=== PATIENT | female | born 1960 | race Caucasian/White ===

== ENCOUNTER 2016-06-19 23:03 | Emergency (ER) | payer OTHER ==
[2016-06-19 23:23] VITALS: RESP 18; TEMP 98.3; O2SAT 99
[2016-06-19] MEDS ORDERED: CEPHALEXIN 250 MG/5 ML BOTTLE PO ONE (23:26)
[2016-06-19] MEDS ORDERED: CEPHALEXIN 250 MG/5 ML BOTTLE ONE (23:48)
[2016-06-20 01:55] VITALS: BP 164/82; PULSE 78
== END 2016-06-20 | disposition home or self-care (01) | DRG 935 ==
LOC: ED 23:03
DX: T25.222A Burn of second degree of left foot, initial encounter (principal); X19.XXXA Contact with other heat and hot substances, initial encounter
CPT/HCPCS: 10021; 99282

== ENCOUNTER 2016-07-23 14:25 | Emergency (ER) | payer OTHER ==
[2016-07-23 14:53] VITALS: RESP 16; TEMP 99.4
[2016-07-23 15:11] LABS: BASOPHILS % (AUTO) 1 % (0-3); EOSINOPHILS % (AUTO) 1 % (0-9); HEMATOCRIT 27 % (35-47); MEAN CORPUSCULAR HGB CONC 32.2 gm/dl (32.0-36.0); MEAN CORPUSCULAR VOLUME 89 fL (81-99); NEUTROPHILS % (AUTO) 79.3 % (37-80)
[2016-07-23 15:22] LABS: CALCIUM 7.7 mg/dl (8.5-10.1); POTASSIUM 4.1 mMol/L (3.5-5.1)
[2016-07-23 17:16] VITALS: BP 149/68; PULSE 87; O2SAT 97
== END 2016-07-23 17:41 | disposition home or self-care (01) | DRG 950 ==
LOC: ED 14:25
DX: T25.022D Burn of unspecified degree of left foot, subsequent encounter (principal); E11.9 Type 2 diabetes mellitus without complications
CPT/HCPCS: 36415; 73718; 80048; 85025; 87040; 99283

== ENCOUNTER 2017-04-18 11:38 | Emergency (ER) | payer MEDICARE, OTHER ==
[2017-04-18 12:38] LABS: BASOPHILS % (AUTO) 0 % (0-3); EOSINOPHILS % (AUTO) 1 % (0-9); HEMATOCRIT 34 % (35-47); MEAN CORPUSCULAR VOLUME 89 fL (81-99); MONOCYTES % (AUTO) 8.3 % (0-12); NEUTROPHILS % (AUTO) 86.5 % (37-80)
[2017-04-18 12:52] LABS: ALBUMIN 2.8 gm/dl (3.4-5.0); BILIRUBIN,DIRECT 0.1 mg/dl (0.0-0.2); CALCIUM 8.4 mg/dl (8.5-10.1); POTASSIUM 3.4 mMol/L (3.5-5.1)
[2017-04-18] MEDS ORDERED: VANCOMYCIN HCL 500 MG PDS 1,000 MG in SODIUM CHLORIDE 0.9% 250 ML 250 ML IV ONE (13:15)
[2017-04-18] MEDS ORDERED: VANCOMYCIN HYDROCHLORIDE 500 MG PDS IV ONE (13:20)
[2017-04-18] MEDS ORDERED: SODIUM CHLORIDE 0.9% FLUSH 10 ML SOL IV PRN (13:31)
[2017-04-18 13:42] VITALS: RESP 18
[2017-04-18] MEDS ORDERED: CEFEPIME HYDROCHLORIDE 2 GM PDS IV SCH (15:00)
[2017-04-18] MEDS ORDERED: SODIUM CHLORIDE 0.9% IV SCH (15:15)
[2017-04-18] MEDS ORDERED: CEFEPIME HYDROCHLORIDE IV SCH (15:15)
[2017-04-18 16:53] VITALS: BP 171/1; PULSE 89; O2SAT 93
[2017-04-18 17:10] VITALS: TEMP 99.9
== END 2017-04-18 16:20 | disposition home or self-care (01) | DRG 603 ==
LOC: ED 11:38
DX: L03.116 Cellulitis of left lower limb (principal); E11.621 Type 2 diabetes mellitus with foot ulcer; L97.429 Non-pressure chronic ulcer of left heel and midfoot with unspecified severity
CPT/HCPCS: 36415; 80048; 80076; 85025; 87040; 87070; 87077; 87186; 99285; J3370

== ENCOUNTER 2017-05-20 06:22 | Emergency (ER) | payer MEDICARE, OTHER ==
[2017-05-20 06:41] VITALS: TEMP 95.5
[2017-05-20] MEDS ORDERED: BACITRACIN 500 U/GM OIN TOP ONE ×2 (07:46→07:47)
[2017-05-20 08:47] VITALS: RESP 14; O2SAT 99
[2017-05-20 08:48] VITALS: BP 117/63; PULSE 71
== END 2017-05-20 08:25 | disposition other institution (70) | DRG 565 ==
LOC: ED 06:22
DX: S86.921A Laceration of unspecified muscle(s) and tendon(s) at lower leg level, right leg, initial encounter (principal); T81.31XA Disruption of external operation (surgical) wound, not elsewhere classified, initial encounter; Z89.511 Acquired absence of right leg below knee; W22.8XXA Striking against or struck by other objects, initial encounter
CPT/HCPCS: 99282; 99285; A9270-GY

== ENCOUNTER 2017-05-20 16:42 | Emergency (ER) | payer MEDICARE, OTHER ==
[2017-05-20 17:15] VITALS: BP 100/51; PULSE 73; RESP 16; TEMP 96.9; O2SAT 97
== END 2017-05-20 17:30 | disposition short-term general hospital (02) | DRG 565 ==
LOC: ED 16:42
DX: S86.921A Laceration of unspecified muscle(s) and tendon(s) at lower leg level, right leg, initial encounter (principal); T81.31XA Disruption of external operation (surgical) wound, not elsewhere classified, initial encounter; Z89.511 Acquired absence of right leg below knee; W22.8XXA Striking against or struck by other objects, initial encounter
CPT/HCPCS: 99282

== ENCOUNTER 2018-08-18 10:29 | Day surgery (SDC) | payer MEDICARE, OTHER ==
[2018-08-18 10:18] LABS: INR 0.98 (0.86-1.12)
[2018-08-18 10:19] LABS: POTASSIUM 2.4 mMol/L (3.5-5.1)
[2018-08-18] MEDS ORDERED: HEPARIN SODIUM 5000 U/ML SOL ONE (11:37)
[2018-08-18] MEDS ORDERED: PROPOFOL 500 MG/50 ML EMU IV ONE ×2 (11:43→13:25)
[2018-08-18] MEDS ORDERED: FENTANYL 100MCG/2ML SOL ONE (12:03)
[2018-08-18] MEDS ORDERED: CEFAZOLIN SODIUM 1 GM PDS ONE ×2 (12:10→12:11)
[2018-08-18] MEDS: BUPIVACAINE HCL 0.5% MPF 10 ML SOL ONE ×2 (12:16→12:45)
[2018-08-18] MEDS ORDERED: LIDOCAINE HCL 1% MPF 30 SOL ONE (12:42)
[2018-08-18] MEDS ORDERED: BACITRACIN 500 U/GM OIN TOP ONE (14:13)
[2018-08-18] MEDS ORDERED: LABETALOL HYDROCHLORIDE 5 MG/ML SOL IV ONE (14:16)
[2018-08-18 14:41] VITALS: TEMP 97
[2018-08-18 15:12] VITALS: PULSE 69; RESP 20
[2018-08-18 15:22] VITALS: BP 112/57; O2SAT 98
== END 2018-08-18 15:45 | disposition home or self-care (01) | DRG 300 ==
LOC: SURG 10:29
PROVIDERS: ATTEND Surgery
DX: Q27.39 Arteriovenous malformation, other site (principal); T82.856A Stenosis of peripheral vascular stent, initial encounter
CPT/HCPCS: 82947; 82962; 84132; 85610; J0690; J1644; J3010; A6402; A9270-GY; C1768; J2001; J2704; J3490